=== PATIENT | male | born 1980 ===

== ENCOUNTER 2023-08-21 13:46 | Outpatient (CLI) | payer OTHER, SELFPAY ==
--- NOTE | 2023-08-21 14:07 | XR_ITS ---
WS: [id number] Chest 2 views, 08/21/2023 Clinical Data: REGULATED PROGRAM MONITORING Comparison: None. Findings: No nodules, masses or effusions are seen. The heart is normal. The pulmonary vascularity is not increased. No pneumonia or pneumothorax is seen. Impression: Negative chest.
== END 2023-08-21 13:47 | disposition home or self-care (01) ==
LOC: LAB 13:55
PROVIDERS: Visit Provider Preventive Medicine Occupational Medicine
DX: Z01.89 Encounter for other specified special examinations (principal)
CPT/HCPCS: 71046